=== PATIENT | female | born 1990 | race Caucasian/White ===

== ENCOUNTER 2020-10-08 22:55 | Emergency (ER) | payer MEDICAID ==
[~2020-10-08] VITALS: Ht 162.6 cm; Wt 97.5 kg
[2020-10-08 22:55] VITALS: BP_SYST 151
[2020-10-09] MEDS ORDERED: KETOROLAC TROMETHAMINE 30 MG VIAL IM ONE (01:30)
[2020-10-09] MEDS ORDERED: IBUP-1970 PO (02:53)
[2020-10-09 03:00] VITALS: BP_SYST 151
== END 2020-10-09 03:00 | disposition home or self-care (01) ==
LOC: SED 22:55
DX: S82.831A Other fracture of upper and lower end of right fibula, initial encounter for closed fracture (principal); S83.91XA Sprain of unspecified site of right knee, initial encounter; Z79.899 Other long term (current) drug therapy; X50.1XXA Overexertion from prolonged static or awkward postures, initial encounter; Y93.41 Activity, dancing; Y92.89 Other specified places as the place of occurrence of the external cause; Y99.8 Other external cause status
CPT/HCPCS: 29505; 73564; 73610; 81025; 96372; 99284; J1885